=== PATIENT | male | born 1965 | race Caucasian/White ===

== ENCOUNTER 2022-12-04 15:06 | Outpatient (CLI) | payer OTHER, SELFPAY ==
[2022-12-04 17:50] LABS: Chloride* 105 mmol/L (96-114); Sodium* 140 mmol/L (135-149)
[2022-12-04 17:51] LABS: Potassium* 4.1 mmol/L (3.6-5.1)
[2022-12-04 17:53] LABS: Blood Urea Nitrogen* 15 mg/dL (7-30); Carbon Dioxide* 28 mmol/L (20-32); Creatinine* 0.9 mg/dL (0.5-1.5); Estimated Glomerular Filt Rate 100 ml/min
[2022-12-04 17:54] LABS: Calcium* 8.7 mg/dL (8.4-10.6); Glucose* 101 mg/dL (60-115)
== END 2022-12-04 15:07 | disposition home or self-care (01) ==
PROVIDERS: PCP Family Medicine; Visit Provider Family Medicine
DX: Z01.818 Encounter for other preprocedural examination (principal)
CPT/HCPCS: 80048

== ENCOUNTER 2023-01-12 11:28 | Outpatient (CLI) | payer OTHER, SELFPAY ==
[2023-01-12 12:45] VITALS: BP 136/84; PULSE 81
--- NOTE | 2023-01-12 15:58 | W.PM.STED ---
Stress Test Note Date Date of test: 01/12/23 Providers Primary care provider: Elroy Mccoy Stress test physician: Carlos Manuel Lopez Stress Test Note Stress test ordered: Exercise Stress Test Indication for test: weakness fatigue Results discussion: Patient presents for the above test after discussion the risks benefits side effects he would like to proceed pretest EKG shows normal sinus rhythm with a ventricular rate of 62 and a blood pressure 131/81, no acute ST wave changes are noted following normal Pj protocol patient is exercised for a total time of 10 minutes, test is terminated because of fulfillment of protocol, he had no chest pain shortness of breath and very little fatigue. 11.7 Mets, maximum heart rate was 144 with 103% of the target. Maximum blood pressure 180 a 94. During this test he had no ST wave changes suggestive of ischemia, there is no dysrhythmias, condition was felt to be good. Impression: Normal electrographic stress test Follow up suggested: There are noted acute changes, conditioning was felt to be excellent, patient is discharged from this facility, if further testing is needed, suggest either a stress echo are Delma,.
== END 2023-01-12 11:29 | disposition home or self-care (01) ==
LOC: STRESS 11:29
PROVIDERS: PCP Family Medicine; Visit Provider Family Medicine
DX: R53.83 Other fatigue (principal); R53.1 Weakness
CPT/HCPCS: 93016; 93017

== ENCOUNTER 2023-03-02 15:15 | Outpatient (CLI) | payer OTHER, SELFPAY | END 2023-03-02 15:16 | disposition home or self-care (01) | LOC: NFLDREF 03-03 04:25 | PROVIDERS: PCP Family Medicine; Referring Provider Family Medicine; Visit Provider Family Medicine | DX: M79.673 Pain in unspecified foot (principal) | CPT/HCPCS: 84550; 86431; 86618 ==

== ENCOUNTER 2023-08-20 10:55 | Outpatient (CLI) | payer OTHER, SELFPAY | END 2023-08-20 10:56 | disposition home or self-care (01) | LOC: LONREF 10:56 | PROVIDERS: PCP Family Medicine; Visit Provider Family Medicine | DX: Z00.00 Encounter for general adult medical examination without abnormal findings (principal); Z12.5 Encounter for screening for malignant neoplasm of prostate | CPT/HCPCS: 84153 ==

== ENCOUNTER 2024-09-05 10:47 | Outpatient (CLI) | payer OTHER, SELFPAY | END 2024-09-05 10:48 | disposition home or self-care (01) | PROVIDERS: PCP Family Medicine; Visit Provider Family Medicine | DX: Z00.00 Encounter for general adult medical examination without abnormal findings (principal); E78.5 Hyperlipidemia, unspecified; R53.83 Other fatigue; Z12.5 Encounter for screening for malignant neoplasm of prostate | CPT/HCPCS: 80053; 82607; 84403; 84443; G0103 ==

== ENCOUNTER 2025-07-21 18:49 | Emergency (ER) | payer OTHER, SELFPAY ==
--- OUTSIDE RECORDS SUMMARY | 2025-07-21 18:51 | XMS_ITS | Patient Health Record ---
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
--- OUTSIDE RECORDS SUMMARY | 2025-07-21 18:51 | XMS_ITS | Clinical Summary ---
[facility] Address [address] [facility] [place] [address] Care Team Providers Care Certified Ophthalmic Assistant Name Role Phone Unavailable Primary Care Provider Unavailabl e Source Comments You are receiving this document as you are listed as the primary care provider,follow-up provider, or the patient has been referred to you for consultation.This is in compliance with the Medicare and[facility] EHR Incentive Program,which states Providers who transition their patient to another setting of careor provider of care or refers their patient to another provider of care shouldprovide summary care record for each transition of care or referral. [email or web address] Allergies No known active allergies Medications acyclovir (ZOVIRAX) 200 MG capsule 12/18/2022 Active Albuterol (VENTOLIN IN) Active betamethasone dipropionate (DIPROSONE) 0.05 % lotion 12/18/2022 Active celecoxib (CELEBREX) 200 MG capsule Take by mouth. 01/22/2023 Active Active Problems No known active problems Social History Tobacco Use Types Packs/Day Years Used Date Smoking Tobacco: Never Assessed Sex and Gender Information Value Date Recorded Sex Assigned at Not on file Legal Sex Male 4:24 PM CDT Gender Identity Not on file Sexual Orientation Not on file Plan of Treatment Health Maintenance Due Date Last Done Comments Colon Cancer Screening Plan Due 1965 Hep C Screening (Preventive Services) 1965 PSA Screening Discussion 1966 HIV Screening (Preventive Services) 1982 Adult Preventive Visit 1984 HepB Vaccine (1) 1985 Cholesterol 2001 Zoster/Shingles Vaccine (1 o f 2) 2016 Pneumococcal Vaccine 50+ Yrs (2 of 2 - PCV) 11/12/2018 11/12/2017 COVID-19 Vaccine (1 - 2023-2 5 season) 2024 Influenza Vaccine (#1) 2025 0, 01/30/2020, 08/25/2013 DTaP/Tdap/Td Vaccine (4 - Tdap) 06/19/2032 06/19/2022, 08/31/2012, 04/14/1999 HepA Vaccine Aged Out No longer eligi ble based on patient's age to complete this topic Hib Vaccine Aged Out No longer eligi ble based on patient's age to complete this topic IPV (Polio) Vaccine Aged Out No longe r eligible based on patient's age to complete this topic MCV4 Vaccine Aged Out No longer eligi ble based on patient's age to complete this topic Meningococcal B Vaccine Aged Out No l onger eligible based on patient's age to complete this topic Insurance [facility]
[2025-07-21 19:01] VITALS: BP 132/74; PULSE 65; RESP 18; TEMP 36.8; O2SAT 97; BMI 22.0
--- NOTE | 2025-07-21 19:14 | CRLHL7_ITS ---
For Patients: As a result of the Century Cures Act, medical imaging exams and procedure reports are released immediately into your electronic medical record. You may view this report before your referring provider. If you have questions, please contact your health care provider. Indication: Left calf pain and swelling Technique: DVT ultrasound of the left lower extremity. Grayscale and color Doppler imaging utilized. Duplex/spectral analysis used. Compression and augmentation as clinically warranted. Comparison: None Findings: All vessels are grossly compressible without evidence of filling defect to suggest DVT. No superficial thrombosis appreciated. 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 No DVT visualized. Dictated by Cuate Francisco MD @ 07/21/2025 9:05:51 PM (Electronically Signed)
--- NOTE | 2025-07-21 19:19 | ED_ITS ---
HPI - Extremity Problem General Date Seen: 07/21/25 Chief complaint: Lower Extremity Swelling Stated complaint: L calf pain/swelling Time Seen by Provider: 07/21/25 18:52 Source: patient and family Mode of arrival: ambulatory Limitations: no limitations History of Present Illness HPI Narrative: Patient is a very nice 60-year-old gentleman who presents here with a left swollen calf, he was at a car show all day today over at [place], he has no previous history DVTs, does remember any injury to his ankle, no history of any blood dyscrasias, he is here today with his denies any chest pain shortness of breath associated with this or any syncope. There is no cough, fevers chills sweats or any other real complaints he spoke to the nurses line and a line a, and they recommended that he comes in here to get seen. Little bit sore in his calf, but other than that he says he feels normal, no evidence of any redness warmth or signs of infection. Related Data Previous Rx's ?Medication ?Instructions ?Recorded acyclovir 200 mg capsule 200 mg PO .5XD PRN cold sore s #50 05/11/25 caps Allergies Allergy/AdvReac Type Severity Reaction Status Date / Time No Known Drug Allergies Allergy Verified 07/21/25 19:03 Review of Systems Status of ROS: Reports: 10 or more systems reviewed and unremarkable except as noted in History and below PFSH [facility] Medical History COVID-19 ?U07.1 - COVID-19 (ICD-10) Gastroesophageal reflux disease ?K21.9 - Gastro-esophageal reflux disease without esophagitis (ICD-10) Surgical History S/P cataract extraction ?Z98.49 - Cataract extraction status, unspecified eye (ICD-10) Social History Narrative: , 2 kids, non-smoker What is your current living situation?: I presently have a place to live Problems where you live: no known problems In the past 12 months, utilities in danger of being shut off: no In past 12 months, lack of transportation kept you from medical appts, meetings, work, or getting things needed for daily living: no In the past 12 mos, have been you worried that your food would run out before you had money to buy more?: never true In the past 12 mos, the food you bought just didn't last and you didn't have money to buy more?: never true Smoking Status: Never smoker Second hand tobacco smoke exposure: No How often do you have a drink containing alcohol: never AUDIT-C Alcohol total score: 0 Non-prescribed substance use: marijuana (any form) How often does anyone, including family, friends and others, physically hurt you : never How often does anyone, including family, friends and others, insult or talk down to you: rarely How often does anyone, including family, friends and others, threaten you with harm: never How often does anyone, including family, friends and others, scream or curse at you: rarely Health Related Social Needs: Other personal risk factors, not elsewhere classified (Z91.89) Exam Narrative: Exam Narrative: Examination he is in no apparent distress room for his vital signs are all normal, his left leg shows a little bit of swelling distally from his calf down a little bit of tenderness negative Homans sign, and he is able to walk normally, there is a little bit more swelling noted above his ankle, but no tenderness and full range of motion DP and posterior tibial pulse and popliteal pulses are normal. Const: Vital Signs, click to edit/add: Vital Signs - 24 hr 07/21/25 19:01 Temperature 98.2 F Pulse Rate [Right Pulse Oximeter] 65 Respiratory Rate 18 Blood Pressure [Ri ght Upper Arm] 132/74 Pulse Oximetry 97 Oxygen Delivery Me thod Room Air Course Vital Signs Vital signs: Initial Vital Signs Temperature 98.2 F 07/21/25 19:01 Temperature Source Temporal Artery Scan 07/21/25 19:01 Pulse Rate 65 07/21/25 19:01 Respiratory Rate 18 07/21/25 19:01 Blood Pressure 132/74 07/21/25 19:01 Blood Pressure Mean 93 07/21/25 19:01 Blood Pressure Position Sitting 07/21/25 19:01 Pulse Oximetry 97 07/21/25 19:01 Oxygen Delivery Method Room Air 07/21/25 19:01 Vital Signs Temperature 98.2 F 07/21/25 19:01 Pulse Rate 65 07/21/25 19:01 Respiratory Rate 18 07/21/25 19:01 Blood Pressure 132/74 07/21/25 19:01 Pulse Oximetry 97 07/21/25 19:01 Oxygen Delivery Method Room Air 07/21/25 19:01 Temperature 98.2 F 07/21/25 19:01 Pulse Rate 65 07/21/25 19:01 Respiratory Rate 18 07/21/25 19:01 Blood Pressure 132/74 07/21/25 19:01 Pulse Oximetry 97 07/21/25 19:01 Oxygen Delivery Method Room Air 07/21/25 19:01 MDM - Extremity (Nontraumatic) MDM Narrative Medical decision making narrative: As I explained to them the diagnosis to rule out here is a DVT. We will go ahead and get ultrasound to come in for this. Imaging Data venous ext ultrasound : My impression: negative Radiologist's impression: Patient: SHALA NOWAK Facility:?[facility] Patient ID:?[id number] Site Patient ID:?[id number]. Site :?[id number] Study:?US-Extremity Left LLE Venous Duplex-07/21/2025 8:28:05 PM Ordering Physician:Zahida Horowitz Final Report: Indication: Left calf pain and swelling Technique: DVT ultrasound of the left lower extremity. Grayscale and color Doppler imaging utilized. Duplex/spectral analysis used. Compression and augmentation as clinically warranted. Comparison: None Findings: All vessels are grossly compressible without evidence of filling defect to suggest DVT. No superficial thrombosis appreciated. 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 No DVT visualized. Dictated by Cuate Francisco MD @ 07/21/2025 9:05:51 PM (Electronic Signature) Discharge Plan Discharge Clinical Impression: Left leg swelling, Catalan's cyst, ruptured Patient Disposition: Home w/ Parent or Adult Condition: Stable Additional Instructions: Home rest continue to monitor, this likely is from the Catalan cyst, collection of fluid coming down your leg no evidence of a blood clot, which is a very good finding, this usually takes approximately a week more if her standing on her feet all the time, to resolve. With orthopedics on as-needed basis. Activity Level: Light activity Discharge Diet: Regular Prescriptions: No Action acyclovir 200 mg capsule 200 mg PO .5XD PRN (Reason: cold sores) Qty: 50 6RF Follow Up/Referrals: Elroy Mccoy MD [Primary Care Provider, Family Practice] Stand Alone Forms: Nonstop Games Info Instructions
[2025-07-21 21:15] VITALS: BP 128/74; PULSE 60; RESP 18; TEMP 36.8; O2SAT 97
[2025-07-21 21:16] VITALS: BP 128/74; PULSE 60; RESP 18; TEMP 36.8
== END 2025-07-21 21:16 | disposition home or self-care (01) ==
PROVIDERS: Emergency Provider Family Medicine; PCP Family Medicine
DX: M79.662 Pain in left lower leg (principal); M71.22 Synovial cyst of popliteal space [Baker], left knee
CPT/HCPCS: 93971; 99284

== ENCOUNTER 2025-10-31 08:42 | Outpatient (CLI) | payer OTHER, SELFPAY | END 2025-10-31 08:43 | disposition home or self-care (01) | PROVIDERS: PCP Family Medicine; Visit Provider Family Medicine | DX: Z13.1 Encounter for screening for diabetes mellitus (principal); Z12.5 Encounter for screening for malignant neoplasm of prostate | CPT/HCPCS: 80048; G0103 ==